=== PATIENT | female | born 1995 ===

== ENCOUNTER 2023-06-05 05:41 | Inpatient (IN) ==
--- NOTE | 2023-06-04 11:18 | Anesthesiology Consultation ---
Date of Service June 04, 2023 Assessment & Plan (1) Encounter for pre-operative examination: - Per risk assessment consultant on 06/04/2023: No known infectious disease contacts, current infectious disease symptoms in past 10 days or COVID positive test result in the past 90 days. Chart Review Chart Review: data entry processor initiated History Surgery Operation Date: 06/05/23 07:30 Proposed Procedures p Primary Section - Dima Adam MD Height/Weight Height: 5 ft 3 in Weight: 89.811 kg Allergies Allergy/AdvReac Type Severity Reaction Status Date / Time peanut Allergy Severe Hives Verified 06/04/23 10:01 Penicillins Allergy Intermediate Unknown, Verified 06/04/23 10:01 as a child Medications Home Medications Medication Instructions Recorded Confirmed Last Taken vits no.124-ferrous fum 1 tab PO DAILY 06/03/23 06/04/23 06/03/23 09:00 27 mg iron-folic acid 800 mcg tablet ( Vitamin) Past Medical History Medical History Asthma as a child - has since outgrown. Migraine hx Ovarian cyst currently on right ovary. Pre-eclampsia "borderline" reason for upcoming . TMJ (temporomandibular joint disorder) jaw clicking (right side) - never locked. Past Family History Family History Other No family history of adverse response to anesthesia Past Surgical History Surgical History [place] teeth removed 2019 Social History Smoking Status: Never smoker Do You Dip or Chew Tobacco: No Hx Alcohol Use: No Hx Substance Use: No substance use type: does not use Lab Results Anesthesia Preop Results Results Anesthesia Widget: WBC 11.21 K/ul (4.8-10.8) H 06/03/23 Hgb 11.1 g/dl (12.0-16.0) L 06/03/23 Hct 33.8 % (37.0-47.0) L 06/03/23 Plt 217 K/uL (130-400) 06/03/23 Na 136 mmol/L (136-145) 06/03/23 K 4.0 mmol/L (3.5-5.1) 06/03/23 Cl 105 mmol/L (98-107) 06/03/23 CO2 20 mmol/L (21-32) L 06/03/23 BUN 9 mg/dl (6-23) 06/03/23 Creat 0.70 mg/dl (0.6-1.2) 06/03/23 Glucose Level 80 mg/dl (70-99(Fasting)) 06/03/23 Urine Color Yellow 06/03/23 Urine Appearance Cloudy (Clear) A 06/03/23 Urine pH 7.0 (4.5-7.5) 06/03/23 Urine Specific [place] 1.023 (1.000-1.030) 06/03/23 Urine Protein Trace (Negative) H 06/03/23 Urine Glucose (UA) Negative (Negative) 06/03/23 Urine Ketones Negative (Negative) 06/03/23 Urine Blood Negative (Negative) 06/03/23 Urine Nitrite Negative (Negative) 06/03/23 Urine Bilirubin Negative (Negative) 06/03/23 Urine Urobilinogen Negative (Negative) 06/03/23 Urine Leukocyte Esterase Negative (Negative) 06/03/23 Urine WBC (Auto) 5-10 /hpf (0-5) H 06/03/23 Urine RBC (Auto) 0-4 /hpf (0-4) 06/03/23 Urine Hyaline Casts (Auto) 5-10 /lpf (0-5) H 06/03/23 Urine Epithelial Cells (Auto) >30 /lpf (0-5) H 06/03/23 Urine Bacteria (Auto) 2+ (Negative) H 06/03/23
[2023-06-05] MEDS ORDERED: LACTATED RINGER'S 1,000 ML IV SCH ×2 (05:45→09:15)
[2023-06-05] MEDS ORDERED: CITRIC ACID/SODIUM CITRATE 15 ML UDC PO SCH (06:00)
[2023-06-05] MEDS ORDERED: ceFAZolin 2000MG 2,000 MG/15 ML SYR IV SCH (06:00)
[2023-06-05 06:11] LABS: Basophils # (auto) 0.04 K/uL (0.00-0.20); Basophils % (auto) 0.4 %; Eosinophils # (auto) 0.07 K/uL (0.00-0.50); Eosinophils % (auto) 0.6 %; Hemoglobin 11.2 g/dl (12.0-16.0); Immature Granulocytes # (auto) 0.09 K/uL (0.01-0.20); Immature Granulocytes % (auto) 0.8 %; Lymphocytes # (auto) 3.16 K/uL (1.20-3.40); Lymphocytes % (auto) 28.1 %; Mean Corpuscular Hemoglobin 29.9 pg (25.0-34.0); Mean Corpuscular Hgb Conc 33.9 g/dL (32.0-36.0); Mean Platelet Volume 11.8 fL (9.4-12.4); Monocytes # (auto) 0.89 K/uL (0.11-0.59); Monocytes % (auto) 7.9 %; Neutrophils # (auto) 6.98 K/uL (1.40-6.50); Neutrophils % (auto) 62.2 %; Platelet Count 220 K/uL (130-400); RDW Coefficient of Variation 13.5 % (11.5-14.5); Red Blood Count 3.75 M/uL (4.20-5.40); White Blood Count 11.23 K/ul (4.8-10.8)
[2023-06-05] MEDS ORDERED: MoRPHine SULFATE PF 1 MG/ML 10 ML AMP/VIAL ONE (07:01)
[2023-06-05] MEDS ORDERED: ONDANSETRON INJ 2 MG/ML 2 ML VIAL ONE (07:01)
[2023-06-05] MEDS ORDERED: KETOROLAC 30 MG/ML VIAL ONE (07:01)
[2023-06-05] MEDS ORDERED: OXYTOCIN 10 UNITS/ML VIAL ONE (07:01)
[2023-06-05] MEDS ORDERED: fentaNYL citrate PF 100 MCG/2 ML VIAL ONE (07:01)
[2023-06-05] MEDS ORDERED: PHENYLEPHRINE HCL 10 MG/ML VIAL ONE (07:01)
--- NOTE | 2023-06-05 07:31 | History & Physical Report ---
Date of Service June 05, 2023 Assessment & Plan (1) Breech presentation on examination: Plan: 27 yo at 39.2 wks here for scheduled Csection for breech at term No complaints VSS AFEBRILE FHR reassuring Patient understands C section is a major surgery, with risks including but not limited to bleeding , infection, injury to surrounding organs like bowels, bladder, ureters, adhesions, scarring, wound infection, blood cloths in legs/ lungs, longer recovery. All questions were answered. She signed an informed consent. Admission and Anticipated Discharge Date Admission Date: June 05, 2023 History of Present Illness Primary Care Provider: Georgia Kessler PA-C Patient is a 27 yo at 39.2 wks here for scheduled Csection for breech at term No complaints No MONTILLA/ Change in vision/ N7V/ ctxs/ LOF/VB +FM Her has been uncomplicted. Allergies Allergy/AdvReac Type Severity Reaction Status Date / Time peanut Allergy Severe Hives Verified 06/05/23 05:51 Penicillins Allergy Intermediate Unknown, Verified 06/05/23 05:51 as a child Home Medications Medication Instructions Recorded Confirmed Type vits no.124-ferrous fum 1 tab PO DAILY 06/03/23 06/05/23 History 27 mg iron-folic acid 800 mcg tablet ( Vitamin) Patient History Medical History Asthma as a child - has since outgrown. Migraine hx Ovarian cyst currently on right ovary. Pre-eclampsia "borderline" reason for upcoming . TMJ (temporomandibular joint disorder) jaw clicking (right side) - never locked. Surgical History [place] teeth removed 2018 Family History Other No family history of adverse response to anesthesia Social History Smoking Status: Never smoker Second Hand Exposure: No; Do You Dip or Chew Tobacco: No; Tobacco Cessation Education Requested by Patient: No Hx Alcohol Use: No Hx Substance Use: No Preferred Language: Lao Communication Ability: Effective Metal Products Viewer Required: No Beliefs That Will Affect Care: None marital status: Single Current Living Situation: Significant Other Current Living Situation Comment: yahaira with Serge current occupational status: employed Other Information That Helps Us Care for You: No Feels Safe at Home: Yes Safety Concerns: Feels Safe At This Time Assistive Devices: None Review of Systems as per Subjective / HPI Physical Exam Constitutional: WD/WN, vitals as above well developed, well nourished, well groomed and comfortable Gastrointestinal (Abdomen): normal bowel sounds, soft, nontender, no hepatosplenomegaly (gravid) Bed side US: breech, FHR 140's Results & Data Vital Signs (Past 12 Hours) Vital Signs Temp Pulse Resp BP O2 Del Method 06/05/23 05:55 36.4 C L 18 Room Air 06/05/23 05:47 36.4 C L 94 H 18 122/84 Laboratory Results Lab Results 06/05/23 06/05/23 Range/Units 05:51 05:51 WBC 11.23 H (4.8-10.8) K/ul RBC 3.75 L (4.20-5.40) M/uL Hgb 11.2 L (12.0-16.0) g/dl Hct 33.0 L (37.0-47.0) % MCV 88.0 (80.0-100.0) fL MCH 29.9 (25.0-34.0) pg MCHC 33.9 (32.0-36.0) g/dL RDW Std Deviation 43.0 (36.4-46.3) fL RDW Coeff of Joanna 13.5 (11.5-14.5) % Plt Count 220 (130-400) K/uL MPV 11.8 (9.4-12.4) fL Immature Gran % (Auto) 0.8 % Neut % (Auto) 62.2 % Lymph % (Auto) 28.1 % Dunn % (Auto) 7.9 % Eos % (Auto) 0.6 % Baso % (Auto) 0.4 % Neut # (Auto) 6.98 H (1.40-6.50) K/uL Lymph # (Auto) 3.16 (1.20-3.40) K/uL Dunn # (Auto) 0.89 H (0.11-0.59) K/uL Eos # (Auto) 0.07 (0.00-0.50) K/uL Baso # (Auto) 0.04 (0.00-0.20) K/uL Immature Gran # (Auto) 0.09 (0.01-0.20) K/uL Blood Type AB Positive Antibody Screen NEGATIVE
[2023-06-05] MEDS ORDERED: ONDANSETRON INJ 2 MG/ML 2 ML VIAL IV PRN (08:20)
[2023-06-05] MEDS ORDERED: NALOXONE HCL 0.08 MG in SYRINGE 1.8 ML IV PRN (08:20)
[2023-06-05] MEDS ORDERED: LACTATED RINGER'S 500 ML IV PRN (08:20)
[2023-06-05] MEDS ORDERED: ACETAMINOPHEN 1,000 MG/100 ML VIAL IV PRN (08:20)
[2023-06-05] MEDS ORDERED: MoRPHine SULFATE PF 1 MG/ML 10 ML AMP/VIAL INT SPINAL ONE (08:20)
[2023-06-05] MEDS ORDERED: NALOXONE HCL 0.4 MG/1 ML VIAL/CARP IV PRN (08:20)
[2023-06-05] MEDS ORDERED: diphenhydrAMINE 50 MG/ML VIAL IV PRN (08:20)
[2023-06-05] MEDS ORDERED: NALBUPHINE HCL INJ 10 MG/ML AMP IV PRN (08:20)
[2023-06-05] MEDS ORDERED: HYDROmorphone INJ 0.5 MG/0.5 ML SYR IV PRN (08:20)
[2023-06-05] MEDS ORDERED: NALOXONE HCL 1 MG in SODIUM CHLORIDE 0.9% 1,000 ML IV PRN (08:20)
[2023-06-05] MEDS ORDERED: ePHEDrine sulfate 50 MG/ML AMP IV PRN (08:20)
[2023-06-05] MEDS ORDERED: NO NARCOTICS OR SEDATIVES SCH (08:30)
[2023-06-05] MEDS ORDERED: SODIUM CHLORIDE 0.9% 1,000 ML IV SCH (08:30)
[2023-06-05] MEDS ORDERED: ePHEDrine sulfate 50 MG/5 ML SYR ONE (08:59)
[2023-06-05] MEDS ORDERED: MAGNESIUM HYDROXIDE SUSP 30 ML UDC PO PRN (09:02)
[2023-06-05] MEDS ORDERED: DIPHTHERIA/TETANUS/PERTUSSIS Vaccine (Tdap, Age 7+yrs) 0.5mL SYR/VL IM ONE (09:02)
[2023-06-05] MEDS ORDERED: MEASLES, MUMPS & RUBELLA VIRUS VIAL SQ ONE (09:02)
[2023-06-05] MEDS ORDERED: BENZOCAINE 20% SPRY 85 APPLN/85 GM CAN EXT PRN (09:02)
[2023-06-05] MEDS ORDERED: HYDROCORTISONE ACETATE 25 MG SUPP PR PRN (09:02)
[2023-06-05] MEDS ORDERED: KETOROLAC 30 MG/ML VIAL IV PRN (09:02)
[2023-06-05] MEDS ORDERED: SENNA 8.6 MG TAB PO PRN (09:02)
--- NOTE | 2023-06-05 09:15 | Operative Report ---
Post Operative Report Pre & Post Diagnosis Operation Date: 06/05/23 07:30 Pre-Op Diagnosis: Breech Presentation Post-Op Diagnosis: Breech Presentation I identified the patient and participated in the time-out.: Yes Procedure Operation Date: 06/05/23 07:30 Actual Procedures p Primary Section for delivery of live male child at 0815 - Dima Adam MD Surgeon Dima Adam MD Ice Resurfacing Machine Operators Dr Martinez Estimated Blood Loss 500 Findings Consistent with Post-Op Diagnosis was a viable male infant, delivered in gutierrez breech position, Apgars 8/8, Weight 3300 gr. Maternal findings, normal uterus holding tubes and ovaries. Specimens Placenta Drains Darden catheter drained 100 mL of clear urine Anesthesia Type Spinal Complications none Indications Patient is a 27-year-old G1, P0 at 39 weeks and 2 days of gestation scheduled for primary for breech presentation Description of Procedure Patient was taken to operating room where a spinal anesthesia was given without difficulty. She was placed in dorsal supine position with a leftward tilt. She was prepared and draped in usual sterile fashion. A financial skin incision was made and carried through to the underlying layer of fascia with the Bovie. Fascia was incised in the midline and incision was extended laterally with the help of Marks scissors. Then the upper aspect of the fascial incision was grasped with 2 Gavin clamps elevated the underlying rectus muscles were dissected off sharply with Marks scissors. Same thing was done on the lower incision. Then the muscles were in the midline, peritoneum was identified grasped with 2 pickups and entered sharply with Metzenbaum scissors. Peritoneal incision was extended superior and inferiorly with good visualization of the bladder. The bladder blade was inserted. Vesicouterine peritoneum was identified, grasped with pickups and entered sharply with Metzenbaum scissors, bladder flap was created digitally and bladder blade was reinserted. Uterus was incised in transverse fashion, incision was extended laterally with our appendage scissors, membranes were ruptured and clear fluid was obtained. B danny's buttocks were delivered down difficulty, followed by legs and arms in flexion position and then head without faculty. Mouth and nose were suctioned there was dried on the field he was vigorously crying and moving. The cord was clamped times and cut at 1 minute delay and then the infant was handed off to the pediatric team. Then the placenta was delivered manually as intact and complete. Uterus was externalized and cleared of all clots and debris's. Uterine incision was repaired with 0 Vicryl in a running locked fashion, second umbricating layer was placed with the same suture in running locked fashion. Excellent hemostasis achieved. Cul-de-sac and the pelvis was irrigated with warm normal saline and suctioned. Incision was checked of anesthetic again. Uterus was returned to the abdomen, parietal peritoneum was reapproximated with 3-0 Vicryl in a running fashion and the muscles were reapproximated in the same suture in a running fashion. All of the fascia and rectus muscles were hemostatic. Rectus fascia was reapproximated with 3-0 Vicryl starting from both columns meeting in the midline. Subcuticular fat tissue was brought together with 2-0 Vicryl in a running fashion, skin was closed with 4-0 Monocryl in a subcuticular cuticular fashion. The mom and baby tolerated procedure well. Sponge needle instrument count was correct x3. No complications happened and I was present during whole procedure. My human resources executive assistant was needed for retraction, hemostasis and aid delivery of . I attest to the content of the Intraoperative Record and any orders documented therein. Any exceptions are noted below.
[2023-06-05] MEDS: OXYTOCIN 20 UNITS in LACTATED RINGER'S 1,000 ML IV SCH ×2 (10:10→18:45)
--- NOTE | 2023-06-05 12:37 | Anesthesiology Progress Note ---
Date of Service June 05, 2023 Anesthesia Post Procedure Vital Signs Vital Signs: Temp Pulse Resp BP Pulse Ox O2 Del Method 06/05/23 10:40 20 06/05/23 10:10 20 06/05/23 10:10 20 06/05/23 10:10 98.1 F 84 20 06/05/23 10:00 20 06/05/23 09:50 20 06/05/23 09:40 18 06/05/23 09:33 18 06/05/23 09:20 20 06/05/23 09:10 97.9 F 95 H 20 134/79 06/05/23 05:55 97.5 F L 18 Room Air 06/05/23 11:11 98 06/05/23 11:11 94 H 06/05/23 11:11 86 105/67 06/05/23 11:06 77 97 06/05/23 11:07 81 110/70 06/05/23 11:01 82 98 06/05/23 10:56 77 97 06/05/23 10:57 77 113/71 06/05/23 10:51 79 97 06/05/23 10:47 83 114/77 06/05/23 10:46 82 98 06/05/23 10:41 81 96 06/05/23 10:36 82 98 06/05/23 10:37 80 119/78 06/05/23 10:31 82 98 06/05/23 10:26 80 98 06/05/23 10:27 78 117/68 06/05/23 10:21 85 98 06/05/23 10:17 84 134/65 06/05/23 10:16 83 97 06/05/23 10:11 86 97 06/05/23 10:06 88 98 06/05/23 10:07 86 130/60 06/05/23 10:01 87 97 06/05/23 09:56 83 97 06/05/23 09:57 85 119/61 06/05/23 09:51 92 H 97 06/05/23 09:46 87 97 06/05/23 09:47 86 132/74 06/05/23 09:41 89 97 06/05/23 09:38 85 130/70 06/05/23 09:36 88 97 06/05/23 09:31 84 98 06/05/23 09:26 88 99 09/13/23 09:27 86 130/63 06/05/23 09:21 80 98 06/05/23 09:16 98 06/05/23 09:16 82 06/05/23 09:17 79 127/65 06/05/23 09:16 91 H 94 06/05/23 09:11 91 H 98 06/05/23 09:07 86 134/79 06/05/23 09:06 95 H 96 06/05/23 05:47 97.5 F L 94 H 18 122/84 Pain Intensity Bilateral Anterior Abdomen: Pain Intensity: 0 Transfer of Care Handoff Completed per policy Notes Mental Status: alert / awake / arousable and participated in evaluation Patient Amnestic to Procedure: No Nausea / Vomiting: adequately controlled Pain: adequately controlled Airway Patency, RR, SpO2: stable & adequate BP & HR: stable & adequate Hydration State: stable & adequate Neuraxial Anesthesia: was administered and sensory block is resolving Anesthetic Complications: no major complications apparent and Pt Satisfied with anesthetic care
[2023-06-05] MEDS: SIMETHICONE 80 MG CHEW PO SCH ×3 (13:57→20:16)
[2023-06-05] MEDS: KETOROLAC 30 MG/ML VIAL IV PRN (20:05)
[2023-06-05] MEDS: DOCUSATE SODIUM 100 MG CAP PO SCH (20:16)
[2023-06-06] MEDS: KETOROLAC 30 MG/ML VIAL IV PRN (02:05)
[2023-06-06] MEDS ORDERED: MEPERIDINE HCL 50 MG/ML CARP IV PRN (02:20)
[2023-06-06] MEDS ORDERED: diphenhydrAMINE 50 MG/ML VIAL IV PRN (02:20)
[2023-06-06] MEDS ORDERED: ONDANSETRON INJ 2 MG/ML 2 ML VIAL IV PRN (02:20)
[2023-06-06] MEDS ORDERED: DC INTRASPINAL MORPHINE SCH (02:20)
[2023-06-06] MEDS ORDERED: PROMETHAZINE HCL 25 MG in SODIUM CHLORIDE 0.9% 50 ML IV PRN (02:20)
[2023-06-06] MEDS ORDERED: diphenhydrAMINE Capsule 25 MG CAP PO PRN (02:20)
[2023-06-06 06:14] LABS: Basophils # (auto) 0.03 K/uL (0.00-0.20); Basophils % (auto) 0.2 %; Eosinophils # (auto) 0.05 K/uL (0.00-0.50); Eosinophils % (auto) 0.4 %; Hematocrit (blood only) 32.7 % (37.0-47.0); Immature Granulocytes # (auto) 0.08 K/uL (0.01-0.20); Immature Granulocytes % (auto) 0.6 %; Lymphocytes # (auto) 2.43 K/uL (1.20-3.40); Mean Corpuscular Hemoglobin 29.8 pg (25.0-34.0); Mean Corpuscular Hgb Conc 33.6 g/dL (32.0-36.0); Mean Corpuscular Volume 88.6 fL (80.0-100.0); Mean Platelet Volume 11.8 fL (9.4-12.4); Monocytes # (auto) 0.77 K/uL (0.11-0.59); Neutrophils # (auto) 9.46 K/uL (1.40-6.50); Neutrophils % (auto) 73.8 %; Platelet Count 209 K/uL (130-400); RDW Coefficient of Variation 13.5 % (11.5-14.5); RDW Standard Deviation 43.9 fL (36.4-46.3); Red Blood Count 3.69 M/uL (4.20-5.40); White Blood Count 12.82 K/ul (4.8-10.8)
--- NOTE | 2023-06-06 08:58 | Obstetrical Progress Note ---
Date of Service June 06, 2023 Subjective Ambulation: ambulating normally Voiding: no voiding problems Passing Gas:: Yes Diet Tolerance:: regular diet Feeding Type:: bottle feeding Current Pain Level(1-10): 0 doing well Physical Exam Constitutional WD/WN, vitals as above Gastrointestinal (Abdomen) Inspection/Auscultation: abdomen normal to inspection and + abdominal surgical incision incision c/d/i abdomen soft and fundus firm Musculoskeletal Extremities: extremities normal to inspection Skin no rashes, warm and dry Neurologic patellar DTR's 2+ bilat, sensation intact Psychiatric A+Ox3, euthymic affect Results & Data Vital Signs (Past 12 Hours) Vital Signs Temp Pulse Resp BP Pulse Ox O2 Del Method 06/05/23 23:20 37.1 C 96 H 16 119/83 97 Room Air 06/06/23 04:00 36.9 C 99 H 18 104/71 97 Room Air 06/06/23 01:30 20 98 06/06/23 00:30 16 97 06/05/23 23:30 18 98 06/05/23 22:30 16 99 06/05/23 21:30 20 98 Laboratory Results Laboratory Results - last 72 hr 06/05/23 06/05/23 06/06/23 05:51 05:51 05:50 WBC 11.23 H 12.82 H RBC 3.75 L 3.69 L Hgb 11.2 L 11.0 L Hct 33.0 L 32.7 L MCV 88.0 88.6 MCH 29.9 29.8 MCHC 33.9 33.6 RDW Std Deviation 43.0 43.9 RDW Coeff of Joanna 13.5 13.5 Plt Count 220 209 MPV 11.8 11.8 Immature Gran % (Auto) 0.8 0.6 Neut % (Auto) 62.2 73.8 Lymph % (Auto) 28.[address] [place] % (Auto) 7.9 6.0 Eos % (Auto) 0.6 0.4 Baso % (Auto) 0.4 0.2 Neut # (Auto) 6.98 H 9.46 H Lymph # (Auto) 3.[address] [place] # (Auto) 0.89 H 0.77 H Eos # (Auto) 0.07 0.05 Baso # (Auto) 0.04 0.03 Immature Gran # (Auto) 0.09 0.08 Blood Type AB Positive Antibody Screen NEGATIVE
[2023-06-06] MEDS: DOCUSATE SODIUM 100 MG CAP PO SCH ×2 (09:15→20:46)
[2023-06-06] MEDS: FERROUS SULFATE 325 MG TAB PO SCH (09:15)
[2023-06-06] MEDS: SIMETHICONE 80 MG CHEW PO SCH ×4 (09:16→20:46)
[2023-06-06] MEDS: PRENATAL VITAMIN 1 TAB PO SCH (09:16)
[2023-06-06] MEDS: IBUPROFEN 600 MG TAB PO PRN ×3 (09:16→18:44)
[2023-06-06] MEDS: oxyCODONE/ACETAMINOPHEN 5mg/325mg TAB PO PRN ×3 (09:17→18:44)
[2023-06-06] MEDS ORDERED: bisacodyL 5 MG TABEC PO SCH (20:00)
[2023-06-07] MEDS: oxyCODONE/ACETAMINOPHEN 5mg/325mg TAB PO PRN ×3 (00:18→14:08)
[2023-06-07] MEDS: IBUPROFEN 600 MG TAB PO PRN ×3 (00:18→14:07)
[2023-06-07 06:42] LABS: Hematocrit (blood only) 27.9 % (37.0-47.0)
[2023-06-07] MEDS: FERROUS SULFATE 325 MG TAB PO SCH (08:00)
[2023-06-07] MEDS: DOCUSATE SODIUM 100 MG CAP PO SCH (08:00)
[2023-06-07] MEDS: PRENATAL VITAMIN 1 TAB PO SCH (08:00)
[2023-06-07] MEDS: SIMETHICONE 80 MG CHEW PO SCH ×3 (08:00→13:12)
[2023-06-07] MEDS ORDERED: bisacodyL 10 MG SUPP PR PRN (09:02)
--- NOTE | 2023-06-07 11:31 | Obstetrical Progress Note ---
Date of Service June 07, 2023 Assessment & Plan Admission and Anticipated Discharge Date Admission Date: June 05, 2023 Subjective Patient is seen and examined. She feels well, no complaints. Pain is under control with oral meds. Ambulating without dizziness Voiding without difficulty Tolerating regular diet with out N&V Flatus + BM neg Bleeding is minimal No fever/ chills/ CP/ SOB/ N&V/ Leg pain Bottle feeding without problems Vital Signs Temp Pulse Pulse Resp BP BP Pulse Ox 06/07/23 08:20 36.4 C L 98 H 18 109/73 99 06/07/23 08:20 06/07/23 08:20 06/06/23 23:08 36.6 C 95 H 18 110/74 99 06/06/23 20:30 36.4 C L 90 18 120/78 98 06/06/23 20:30 06/06/23 15:40 37.1 C 101 H 16 117/82 96 O2 Del Method 06/07/23 08:20 Room Air 06/07/23 08:20 Room Air 06/07/23 08:20 Room Air 06/06/23 23:08 Room Air 06/06/23 20:30 Room Air 06/06/23 20:30 Room Air 06/06/23 15:40 Room Air Lab Results 06/05/23 06/05/23 06/06/23 Range/Units 05:51 05:51 05:50 WBC 11.23 H 12.82 H (4.8-10.8) K/ul RBC 3.75 L 3.69 L (4.20-5.40) M/uL Hgb 11.2 L 11.0 L (12.0-16.0) g/dl Hct 33.0 L 32.7 L (37.0-47.0) % MCV 88.0 88.6 (80.0-100.0) fL MCH 29.9 29.8 (25.0-34.0) pg MCHC 33.9 33.6 (32.0-36.0) g/dL RDW Std Deviation 43.0 43.9 (36.4-46.3) fL RDW Coeff of Joanna 13.5 13.5 (11.5-14.5) % Plt Count 220 209 (130-400) K/uL MPV 11.8 11.8 (9.4-12.4) fL Immature Gran % (Auto) 0.8 0.6 % Neut % (Auto) 62.2 73.8 % Lymph % (Auto) 28.1 19.0 % [place] % (Auto) 7.9 6.0 % Eos % (Auto) 0.6 0.4 % Baso % (Auto) 0.4 0.2 % Neut # (Auto) 6.98 H 9.46 H (1.40-6.50) K/uL Lymph # (Auto) 3.16 2.43 (1.20-3.40) K/uL [place] # (Auto) 0.89 H 0.77 H (0.11-0.59) K/uL Eos # (Auto) 0.07 0.05 (0.00-0.50) K/uL Baso # (Auto) 0.04 0.03 (0.00-0.20) K/uL Immature Gran # (Auto) 0.09 0.08 (0.01-0.20) K/uL Blood Type AB Positive Antibody Screen NEGATIVE 06/07/23 Range/Units 06:09 WBC (4.8-10.8) K/ul RBC (4.20-5.40) M/uL Hgb 9.0 L (12.0-16.0) g/dl Hct 27.9 L (37.0-47.0) % MCV (80.0-100.0) fL MCH (25.0-34.0) pg MCHC (32.0-36.0) g/dL RDW Std Deviation (36.4-46.3) fL RDW Coeff of Joanna (11.5-14.5) % Plt Count (130-400) K/uL MPV (9.4-12.4) fL Immature Gran % (Auto) % Neut % (Auto) % Lymph % (Auto) % [place] % (Auto) % Eos % (Auto) % Baso % (Auto) % Neut # (Auto) (1.40-6.50) K/uL Lymph # (Auto) (1.20-3.40) K/uL [place] # (Auto) (0.11-0.59) K/uL Eos # (Auto) (0.00-0.50) K/uL Baso # (Auto) (0.00-0.20) K/uL Immature Gran # (Auto) (0.01-0.20) K/uL Blood Type Antibody Screen PE: General: Alert, orientedx3, NAD CVS: S1S2 RRR Lungs; CTAB Abd: soft, NT, ND, BS+, fundus firm, below Umbilicus Incision: Clean, dry, intact Perineum intact, Lochia rubra minimal Ext; NT, no edema AP: 27 yo s/p C Section, pod# 3 VSS Afebrile doing well Continue routine postop care Encourage ambulation, PO intake All questions were answered D/C home , f/u in office Results & Data Vital Signs (Past 12 Hours) Vital Signs Temp Pulse Resp BP Pulse Ox O2 Del Method 06/07/23 08:20 36.4 C L 98 H 18 109/73 99 Room Air 06/07/23 08:20 Room Air 06/07/23 08:20 Room Air
== END 2023-06-07 16:00 | disposition home or self-care (01) | DRG 788 ==
LOC: 4S1 05:41 → EDSTATUS 07:30 → 4E2 11:29